=== PATIENT | male | born 1945 | race Caucasian/White ===

== ENCOUNTER → 2017-11-02 | Outpatient (CLI) | payer MEDICARE ==
[~2017-11-02] MED LIST: ACETAMINOPHEN500 MG PO; DICL75ER PO; Desyrel50 MG PO; TRIHYD253A PO
== END ==
LOC: PLD 11:24 → LAB SHORT 11:24
DX: D22.5 Melanocytic nevi of trunk (principal)
CPT/HCPCS: 88305

== ENCOUNTER 2021-08-09 20:08 | Inpatient (IN) | payer MEDICARE, OTHER ==
[~2021-08-09] VITALS: Ht 188 cm; Wt 107.3 kg
[~2021-08-09 20:08] MED LIST changes: -ACETAMINOPHEN500 MG PO; -TRIHYD253A PO
[2021-08-09] MEDS ORDERED: ATOR40TA PO (20:28)
[2021-08-09] MEDS ORDERED: PIOGLITAZONE HC15 MG PO (20:28)
[2021-08-09] MEDS ORDERED: DYAZIDE 37.5-21 EACH PO (20:29)
[2021-08-09] MEDS ORDERED: ALEN10 PO (20:34)
[2021-08-09 20:43] LABS: BASOPHILS ABSOLUTE AUTO 0.03 K/mm3 (0.00-0.23); BASOPHILS PERCENT AUTO 1 % (0-2); EOSINOPHILS ABSOLUTE AUTO 0.07 K/mm3 (0.00-0.68); EOSINOPHILS PERCENT AUTO 2 % (0-6); Hematocrit 43.3 % (37.0-53.0); Hemoglobin 15.4 g/dL (13.5-17.5); IMMATURE GRAN ABSOLUTE AUTO 0.01 K/mm3 (0.00-0.10); IMMATURE GRAN PERCENT AUTO 0 % (0-1); LYMPHOCYTES ABSOLUTE AUTO 1.08 K/mm3 (0.84-5.20); LYMPHOCYTES PERCENT AUTO 23 % (21-46); MONOCYTES PERCENT AUTO 9 % (4-13); Mean Corpuscular HGB 32.1 pg (26.0-34.0); Mean Corpuscular HGB Conc 35.6 g/dL (31.5-36.5); Mean Corpuscular Volume 90 fL (80-100); Mean Platelet Volume 9.8 fL (9.1-12.4); NEUTROPHILS ABSOLUTE AUTO 3.12 K/mm3 (1.96-9.15); NEUTROPHILS PERCENT AUTO 66 % (41-73); Platelet Count 200 K/mm3 (150-400); RDW Coefficient Variation 12.3 % (11.7-14.2); RDW Standard Deviation 40.7 fL (35.1-46.3); White Blood Cell Count 4.71 K/mm3 (4.00-11.30)
[2021-08-09] MEDS ORDERED: VITAMIN D325 MC3 PO (21:18)
[2021-08-09] MEDS ORDERED: Aspir 8181 MG PO (21:18)
[2021-08-09 21:30] LABS: Alanine Aminotransfer (ALT/SGP 57 U/L (12-78); Albumin, Blood 3.8 g/dL (3.4-5.0); Albumin/Globulin Ratio 1.2 (0.8-1.8); Alk Phos 213 U/L (50-136); Anion Gap 8 mmol/L (6-16); Aspartate Aminotrans (AST/SGOT 43 U/L (12-37); Bilirubin, Total 0.5 mg/dL (0.1-1.0); Blood Urea Nitrogen 20 mg/dL (8-24); Bun/Creatinine Ratio 18.5 (12.0-20.0); CO2, Blood 29 mmol/L (21-32); Calcium, Blood 8.7 mg/dL (8.5-10.1); Chloride, Blood 105 mmol/L (98-108); Creatinine, Blood 1.08 mg/dL (0.60-1.20); Globulin, Blood 3.1 g/dL (2.2-4.0); Glomerular Filtration Rate >60 (60-); Glucose, Blood 156 mg/dL (70-99); Potassium, Blood 3.2 mmol/L (3.5-5.5); Sodium, Blood 142 mmol/L (136-145); Total Protein, Blood 6.9 g/dL (6.4-8.2); Troponin I <0.015 ng/mL (0.000-0.040)
[2021-08-10 00:13] LABS: International Normalized Ratio 1.02; Prothrombin Time Results 10.7 Sec (9.7-11.5)
--- NOTE | 2021-08-10 05:58 | NUR ---
SHIFT SUMMARY: PT HAD FAIR NIGHT OTHER THAN SLEEPLESSNESS. NO C/O CP OR SOB. HEAPRIN GTT CONTINUES AT 13U/KG/HR. SB WITH BBB, STABLE VS, BED LOCKED AND LOW, CALL TAVERA IN REACH. PT HAS NO BELONGINGS OTHER THAN CLOTHING. HAS REMAINDED NPO FOR POTENTIAL INTERVENTION TODAY. KOFI TRACY
[2021-08-10 08:47] LABS: BASOPHILS ABSOLUTE AUTO 0.02 K/mm3 (0.00-0.23); BASOPHILS PERCENT AUTO 1 % (0-2); EOSINOPHILS ABSOLUTE AUTO 0.06 K/mm3 (0.00-0.68); EOSINOPHILS PERCENT AUTO 2 % (0-6); Hematocrit 42.1 % (37.0-53.0); Hemoglobin 14.9 g/dL (13.5-17.5); IMMATURE GRAN ABSOLUTE AUTO 0.01 K/mm3 (0.00-0.10); IMMATURE GRAN PERCENT AUTO 0 % (0-1); LYMPHOCYTES ABSOLUTE AUTO 0.87 K/mm3 (0.84-5.20); LYMPHOCYTES PERCENT AUTO 21 % (21-46); MONOCYTES ABSOLUTE AUTO 0.29 K/mm3 (0.16-1.47); MONOCYTES PERCENT AUTO 7 % (4-13); Mean Corpuscular HGB 31.9 pg (26.0-34.0); Mean Corpuscular HGB Conc 35.4 g/dL (31.5-36.5); Mean Corpuscular Volume 90 fL (80-100); Mean Platelet Volume 9.7 fL (9.1-12.4); NEUTROPHILS ABSOLUTE AUTO 2.82 K/mm3 (1.96-9.15); NEUTROPHILS PERCENT AUTO 69 % (41-73); Platelet Count 169 K/mm3 (150-400); RDW Coefficient Variation 12.3 % (11.7-14.2); RDW Standard Deviation 40.2 fL (35.1-46.3); Red Blood Cell Count 4.67 M/mm3 (4.30-5.90); White Blood Cell Count 4.07 K/mm3 (4.00-11.30)
[2021-08-10 09:08] LABS: CPK Creatine Kinase 149 U/L (39-308); Troponin I <0.015 ng/mL (0.000-0.040)
[2021-08-10 09:53] LABS: Alanine Aminotransfer (ALT/SGP 47 U/L (12-78); Albumin, Blood 3.4 g/dL (3.4-5.0); Albumin/Globulin Ratio 1.2 (0.8-1.8); Alk Phos 156 U/L (50-136); Anion Gap 7 mmol/L (6-16); Aspartate Aminotrans (AST/SGOT 34 U/L (12-37); Bilirubin, Total 0.9 mg/dL (0.1-1.0); Blood Urea Nitrogen 14 mg/dL (8-24); Bun/Creatinine Ratio 17.2 (12.0-20.0); CO2, Blood 26 mmol/L (21-32); Calcium, Blood 8.5 mg/dL (8.5-10.1); Chloride, Blood 110 mmol/L (98-108); Creatinine, Blood 0.82 mg/dL (0.60-1.20); Globulin, Blood 2.9 g/dL (2.2-4.0); Glomerular Filtration Rate >60 (60-); Glucose, Blood 131 mg/dL (70-99); Potassium, Blood 3.3 mmol/L (3.5-5.5); Sodium, Blood 143 mmol/L (136-145); Total Protein, Blood 6.3 g/dL (6.4-8.2)
--- NOTE | 2021-08-10 10:22 | NUR ---
PT HAS LEFT THE FLOOR FOR THE [employer], TRANSPORT VIA BED.
[2021-08-10 11:00] LABS: SARS-Cov-2 (COVID-19) PCR, MMC NEGATIVE (NEGATIVE)
--- NOTE | 2021-08-10 13:36 | NUR ---
PT RETURNS FROM CONTAINER MAKER POST STENT PLACEMENT X4. RT RADIAL ACCESS, TR BAND WITH 12ML IN PLACE UPON ARRIVAL. NO ACTIVE BLEEDING NOTED FROM ACCESS SITE, PULSES STRONG AND PRESENT, GOOD CAP REFILL, SKIN PWD. ARM BOARD IN PLACE. PT REPORTED LT SIDED CHEST AND ARM PAIN IN CONTAINER MAKER WHICH HAS CONTINUED. PT RECIEVED FENTANYL IVPB FOR PAIN BUT CONTINUES TO REPORT PAIN, PT WILL RECIEVE TYLENOL 3 FOR CONTINUED PAIN. STAT EKG WAS PERFORMED PLACED IN CHART. HEPARIN IS D/C'd, NS INFUSING AT 75ML/HR PER EMAR, POTASSIUM IS RESUMED THAT HAD BEEN STOPPED IN CONTAINER MAKER. PT DROWSY BUT ALERT, ANSWERING QUESTIONS APPROPRIATELY. VSS WILL CONTINUE TO MONITOR. NO HEMATOMA NOTED TO ACCESS SITE, SOFT TO PALPATION.
--- NOTE | 2021-08-10 14:11 | NUR ---
PT REPORTS TO DR PADILLA THAT THE EXERTIONAL CP HAS RESOLVED, STS THAT HE HAS MILD LT SIDED CP AND ARM PAIN WHICH IS IMRPOVING WITH TYLENOL 3 ADMINISTRATION. PT STOOD AT BEDSIDE FOR URINAL USE. PT IS NOW LAYING DOWN TO SLEEP, CALL LIGHT WITHIN REACH
--- NOTE | 2021-08-10 15:19 | NUR ---
REMOVED 3CC'S OF AIR FROM TR BAND, PROXIMAL AND DISTAL PULSES PALPABLE AND EQUAL, NO HEMATOMA, NO BLEEDING OR OOZING FROM ACCESS SITE.
--- NOTE | 2021-08-10 15:41 | NUR ---
REMOVED 2CC'S FROM TR BAND. DISTAL AND PROXIMAL PULSES PALPABLE AND EQUAL, NO OOZING OR BLEEDING FROM ACCESS SITE, NO HEMATOMA NOTED.
--- NOTE | 2021-08-10 16:05 | NUR ---
REMOVED 2CC'S FROM TR BAND. NO WEEPING OR BLEEDING FROM ACCESS SITE. DISTAL AND PROXIMAL PULSES PALPABLE AND EQUAL, NO HEMATOMA NOTED.
--- NOTE | 2021-08-10 16:53 | NUR ---
REMOVED 2 CC'S FROM TR BAND, NO OOZING OR BLEEDING NOTED, NO HEMATOMA NOTED, PULSES PALPABLE AND EQUAL DISTAL AND PROXIMAL.
--- NOTE | 2021-08-10 17:15 | NUR ---
REMOVED 2 CCS' FROM TR BAND, NOW FULLY DEFLATED, NO OOZING OR BLEEDING NOTED, NO HEMATOMA NOTED, PULSES EQUAL AND PALPABLE.
[2021-08-10 17:48] LABS: Troponin I 0.096 ng/mL (0.000-0.040)
--- NOTE | 2021-08-10 18:20 | NUR ---
SHIFT SUMMARY TR BAND HAS BEEN FULLY REMOVED, TEGADERM OCCLUSIVE DRESSING IN PLACE. NO OOZING OR BLEEDING NOTED, NO HEMATOMA PRESENT, PULSES PALPABLE AND EQUAL. PT HAS BEEN IN GOOD SPIRITS WITH A GOOD OUTLOOK ON PRESENT ILLNESS. PT EXPRESSED CONCERNS OVER CONTINUED CHEST PAIN AND DISCOMFORT AND WAS COMFORTED WITH FURTHER EDUCATION ON THE PRESENT ILLNESS. VSS, NO ACUTE CHANGES NOTED.
--- NOTE | 2021-08-10 20:00 | NUR ---
RIGHT RADIAL ACCESS SITE WITHOUT COMPLICATIONS, TRANSPARENT DRESSING INTACT WITHOUT OOZING OR SOTERO BLEEDING, PALPABLE PULSE, CMS TO FINGERS INTACT, 02 SAT PROBE TO RIGHT INDEX FINGER.KOFI TRACY
--- NOTE | 2021-08-10 23:58 | NUR ---
RIGHT WRIST UNCHANGED FROM PREVIOUS ASSESSMENT, CMS INTACT, PALPABLE PULSE, DRESSING DRY AND INTACT. KOFI TRACY
[2021-08-11 03:48] LABS: Hematocrit 37.8 % (37.0-53.0); Hemoglobin 13.6 g/dL (13.5-17.5); Mean Corpuscular HGB 32.2 pg (26.0-34.0); Mean Corpuscular Volume 90 fL (80-100); Mean Platelet Volume 9.5 fL (9.1-12.4); Platelet Count 163 K/mm3 (150-400); RDW Coefficient Variation 12.3 % (11.7-14.2); RDW Standard Deviation 40.2 fL (35.1-46.3); Red Blood Cell Count 4.22 M/mm3 (4.30-5.90); White Blood Cell Count 6.19 K/mm3 (4.00-11.30)
[2021-08-11 04:11] LABS: Anion Gap 7 mmol/L (6-16); Blood Urea Nitrogen 10 mg/dL (8-24); Bun/Creatinine Ratio 12.7 (12.0-20.0); CHOL/HDL RATIO 2.4; CO2, Blood 27 mmol/L (21-32); Chloride, Blood 107 mmol/L (98-108); Cholesterol 74 mg/dL (50-200); Creatinine, Blood 0.79 mg/dL (0.60-1.20); Glomerular Filtration Rate >60 (60-); Glucose, Blood 120 mg/dL (70-99); HDL Cholesterol 31 mg/dL (>39); LDL/HDL RATIO 0.7; Low Density Lipoprotein Chol 23 mg/dL (0-110); Sodium, Blood 141 mmol/L (136-145); Triglycerides 102 mg/dL (30-160); Very Low Density Lipoprot Chol 20 mg/dL (6-32)
--- NOTE | 2021-08-11 04:30 | NUR ---
K+ 3.0 ON AM LABS, DR RAY NOTIFIED, ORDERS REC'D. DEMARCUSRN
--- NOTE | 2021-08-11 05:47 | NUR ---
SHIFT SUMMARY: PT HAD FAIR NIGHT, ABLE TO SLEEP INTERMITTENTLY, MEDICATED EARLY IN SHIFT FOR PAIN WITH GOOD EFFECT. VOIDING, ABLE TO VERBALIZE NEEDS, BED LOCKED AND LOW, RIGHT RADIAL ACCESS SITE WITHOUT COMPLICATIONS, SB/SR W/ 1* AVB VSS. CALL TAVERA IN REACH.KOFI TRACY
[2021-08-11] MEDS ORDERED: CLOP75 PO (11:19)
[2021-08-11] MEDS ORDERED: Prinivil10 MG PO (11:21)
[2021-08-11] MEDS ORDERED: NITR.4SL SL (11:23)
--- NOTE | 2021-08-11 14:39 | NUR ---
DISCHARGE DISCUSSED DISCHARGE ORDERS WITH PT AND FAMILY MEMBER, ALL QUESTIONS WERE ANSWERED AND PT EXPRESSED SATISFACTION. PT STATED THAT THEY WILL KEEP FOLLOW UP APPOINTMENTS. PT INDEPENDENTLY DRESSED WITH ZERO ISSUES. PT WAS TRANSPORTED TO EXIT VIA CHAIR.
== END 2021-08-11 12:30 | disposition home or self-care (01) | DRG 246 ==
LOC: ER 20:08 → PCU 20:09
PROVIDERS: Emergency Medicine; Internal Medicine Cardiovascular Disease; ADMIT Internal Medicine
PROC: 027137Z Dilation of Coronary Artery, Two Arteries with Four or More Drug-eluting Intraluminal Devices, Percutaneous Approach (ICD-10-PCS; principal; 2021-08-10)
PROC: 4A023N7 Measurement of Cardiac Sampling and Pressure, Left Heart, Percutaneous Approach (ICD-10-PCS; 2021-08-10)
PROC: B2111ZZ Fluoroscopy of Multiple Coronary Arteries using Low Osmolar Contrast (ICD-10-PCS; 2021-08-10)
DX: I25.110 Atherosclerotic heart disease of native coronary artery with unstable angina pectoris (principal); I10 Essential (primary) hypertension; E11.9 Type 2 diabetes mellitus without complications; I16.0 Hypertensive urgency; M88.9 Osteitis deformans of unspecified bone; E78.5 Hyperlipidemia, unspecified; Z79.82 Long term (current) use of aspirin; Z79.899 Other long term (current) drug therapy; Z88.8 Allergy status to other drugs, medicaments and biological substances
CPT/HCPCS: 36415; 71045; 80048; 80053; 80061; 82550; 83880; 84484; 85025; 85027; 85347; 85610; 85730; 92920; 92921; 93005; 93010; 93308; 93321; 93458; 99152; 99153; 99285-25; A9270; C1725; C1769; C1874; C1887; C1894; C9600; G0378; J0461; J1644; J2250; J3010; J3480; J7030; J7050; Q9967; U0004

== ENCOUNTER 2022-09-08 08:47 | Day surgery (SDC) | payer MEDICARE, OTHER ==
[~2022-09-08] VITALS: Ht 188 cm; Wt 109.4 kg
[~2022-09-08 08:47] MED LIST changes: +ALEN10 PO; +ATOR40TA PO; +Aspir 8181 MG PO; +CLOP75 PO; +DYAZIDE 37.5-21 EACH PO; +NITR.4SL SL; +PIOGLITAZONE HC15 MG PO; +Prinivil10 MG PO; +VITAMIN D325 MC3 PO
== END 2022-09-08 10:14 | disposition home or self-care (01) ==
LOC: ORSCSDS 08:47
PROVIDERS: Anesthesiology
PROC: 3E0R33Z Introduction of Anti-inflammatory into Spinal Canal, Percutaneous Approach (ICD-10-PCS; principal; 2022-09-08 10:00)
DX: M51.16 Intervertebral disc disorders with radiculopathy, lumbar region (principal); I10 Essential (primary) hypertension; E78.00 Pure hypercholesterolemia, unspecified; I25.10 Atherosclerotic heart disease of native coronary artery without angina pectoris; E66.9 Obesity, unspecified; Z68.31 Body mass index [BMI] 31.0-31.9, adult; Z79.01 Long term (current) use of anticoagulants; Z79.82 Long term (current) use of aspirin; Z79.899 Other long term (current) drug therapy
CPT/HCPCS: 82947; J1040; J2001

== ENCOUNTER 2022-10-13 09:41 | Day surgery (SDC) | payer MEDICARE, OTHER | END 2022-10-13 10:50 | disposition other institution (70) | LOC: ORSCSDS 09:41 | DX: Z86.010 Personal history of colon polyps (principal); Z53.9 Procedure and treatment not carried out, unspecified reason | CPT/HCPCS: 82947; 93005; 93010; J2704; J7120 ==

== ENCOUNTER 2022-11-06 13:51 | Day surgery (SDC) | payer MEDICARE, OTHER ==
[~2022-11-06] VITALS: Ht 188 cm; Wt 109.8 kg
== END 2022-11-06 15:45 | disposition home or self-care (01) ==
LOC: ORSCSDS 13:51
PROVIDERS: Anesthesiology
PROC: 3E0R33Z Introduction of Anti-inflammatory into Spinal Canal, Percutaneous Approach (ICD-10-PCS; principal; 2022-11-06 15:00)
PROC: 3E0R3BZ Introduction of Anesthetic Agent into Spinal Canal, Percutaneous Approach (ICD-10-PCS; principal; 2022-11-06 15:00)
DX: M51.16 Intervertebral disc disorders with radiculopathy, lumbar region (principal); I25.10 Atherosclerotic heart disease of native coronary artery without angina pectoris; I10 Essential (primary) hypertension; E78.00 Pure hypercholesterolemia, unspecified; K21.9 Gastro-esophageal reflux disease without esophagitis; Z79.82 Long term (current) use of aspirin; Z79.899 Other long term (current) drug therapy
CPT/HCPCS: J1040

== ENCOUNTER 2023-09-07 12:46 | Emergency (ER) | payer MEDICARE, OTHER ==
[~2023-09-07] VITALS: Ht 188 cm; Wt 106.6 kg
[2023-09-07 13:46] LABS: BASOPHILS ABSOLUTE AUTO 0.02 K/mm3 (0.00-0.23); BASOPHILS PERCENT AUTO 0 % (0-2); EOSINOPHILS ABSOLUTE AUTO 0.04 K/mm3 (0.00-0.68); EOSINOPHILS PERCENT AUTO 1 % (0-6); Hematocrit 43.1 % (37.0-53.0); Hemoglobin 14.8 g/dL (13.5-17.5); IMMATURE GRAN ABSOLUTE AUTO 0.02 K/mm3 (0.00-0.10); IMMATURE GRAN PERCENT AUTO 0 % (0-1); LYMPHOCYTES ABSOLUTE AUTO 0.58 K/mm3 (0.84-5.20); LYMPHOCYTES PERCENT AUTO 9 % (21-46); MONOCYTES ABSOLUTE AUTO 0.35 K/mm3 (0.16-1.47); MONOCYTES PERCENT AUTO 6 % (4-13); Mean Corpuscular HGB Conc 34.3 g/dL (31.5-36.5); Mean Corpuscular Volume 93 fL (80-100); Mean Platelet Volume 10.1 fL (9.1-12.4); NEUTROPHILS ABSOLUTE AUTO 5.39 K/mm3 (1.96-9.15); NEUTROPHILS PERCENT AUTO 84 % (41-73); Platelet Count 184 K/mm3 (150-400); RDW Coefficient Variation 12.9 % (11.7-14.2); RDW Standard Deviation 43.5 fL (35.1-46.3); Red Blood Cell Count 4.63 M/mm3 (4.30-5.90)
[2023-09-07 14:00] VITALS: BP 123/72
[2023-09-07 14:08] LABS: Albumin, Blood 3.7 g/dL (3.4-5.0); Albumin/Globulin Ratio 1.2 (0.8-1.8); Bilirubin, Total 0.5 mg/dL (0.1-1.0); Calcium, Blood 8.7 mg/dL (8.5-10.1); Creatinine, Blood 1.05 mg/dL (0.60-1.20); Globulin, Blood 3.1 g/dL (2.2-4.0); Potassium, Blood 3.9 mmol/L (3.5-5.5); Total Protein, Blood 6.8 g/dL (6.4-8.2)
== END 2023-09-07 15:14 | disposition home or self-care (01) ==
LOC: ER 12:46
PROVIDERS: Student in an Organized Health Care Education/Training Program
DX: R55 Syncope and collapse (principal); E11.9 Type 2 diabetes mellitus without complications; I10 Essential (primary) hypertension; E78.5 Hyperlipidemia, unspecified; I25.10 Atherosclerotic heart disease of native coronary artery without angina pectoris; Z88.8 Allergy status to other drugs, medicaments and biological substances; Z79.899 Other long term (current) drug therapy; Z79.82 Long term (current) use of aspirin
CPT/HCPCS: 80053; 84484; 85025; 93005; 93010; 99284-25

== ENCOUNTER 2023-11-29 10:18 | Emergency (ER) | payer MEDICARE, OTHER ==
[~2023-11-29] VITALS: Ht 188 cm; Wt 104.3 kg
[2023-11-29 10:51] LABS: BASOPHILS ABSOLUTE AUTO 0.02 K/mm3 (0.00-0.23); BASOPHILS PERCENT AUTO 1 % (0-2); EOSINOPHILS ABSOLUTE AUTO 0.05 K/mm3 (0.00-0.68); EOSINOPHILS PERCENT AUTO 1 % (0-6); Hematocrit 42.2 % (37.0-53.0); Hemoglobin 14.4 g/dL (13.5-17.5); IMMATURE GRAN ABSOLUTE AUTO 0.01 K/mm3 (0.00-0.10); IMMATURE GRAN PERCENT AUTO 0 % (0-1); LYMPHOCYTES ABSOLUTE AUTO 0.64 K/mm3 (0.84-5.20); LYMPHOCYTES PERCENT AUTO 18 % (21-46); MONOCYTES ABSOLUTE AUTO 0.28 K/mm3 (0.16-1.47); MONOCYTES PERCENT AUTO 8 % (4-13); Mean Corpuscular HGB 31.4 pg (26.0-34.0); Mean Corpuscular HGB Conc 34.1 g/dL (31.5-36.5); Mean Corpuscular Volume 92 fL (80-100); Mean Platelet Volume 9.5 fL (9.1-12.4); NEUTROPHILS ABSOLUTE AUTO 2.62 K/mm3 (1.96-9.15); NEUTROPHILS PERCENT AUTO 72 % (41-73); Platelet Count 194 K/mm3 (150-400); RDW Coefficient Variation 12.6 % (11.7-14.2); RDW Standard Deviation 42.6 fL (35.1-46.3); Red Blood Cell Count 4.58 M/mm3 (4.30-5.90); White Blood Cell Count 3.62 K/mm3 (4.00-11.30)
[2023-11-29 11:24] LABS: Albumin, Blood 3.6 g/dL (3.4-5.0); Albumin/Globulin Ratio 1.2 (0.8-1.8); Bilirubin, Total 0.7 mg/dL (0.1-1.0); Bun/Creatinine Ratio 18.9 (12.0-20.0); Calcium, Blood 8.7 mg/dL (8.5-10.1); Creatinine, Blood 1.06 mg/dL (0.60-1.20); Potassium, Blood 3.8 mmol/L (3.5-5.5); Total Protein, Blood 6.6 g/dL (6.4-8.2)
[2023-11-29 13:46] VITALS: BP 134/79
== END 2023-11-29 14:08 | disposition home or self-care (01) ==
LOC: ER 10:18
PROVIDERS: Student in an Organized Health Care Education/Training Program
DX: R07.89 Other chest pain (principal); E11.9 Type 2 diabetes mellitus without complications; I10 Essential (primary) hypertension; E78.5 Hyperlipidemia, unspecified; I25.10 Atherosclerotic heart disease of native coronary artery without angina pectoris; Z79.899 Other long term (current) drug therapy
CPT/HCPCS: 71046; 80053; 84484; 85025; 93005; 93010; 99285-25